=== PATIENT | male | born 1965 | race Caucasian/White ===

== ENCOUNTER 2020-05-19 03:20 | Emergency (ER) | payer SELFPAY ==
[~2020-05-19] VITALS: Ht 182.9 cm; Wt 69.2 kg
[2020-05-19 03:30] VITALS: BP 148/91
[2020-05-19] MEDS ORDERED: ACETAMINOPHEN 500 MG TABLET PO ONE (03:30)
[2020-05-19] MEDS ORDERED: IBUPROFEN 600 MG TABLET. PO ONE (03:30)
--- NOTE | 2020-05-19 03:35 | PHYS DOC ---
Adult General HPI HPI Patient is a 54-year-old male who presents with a chief complaint of right-sided rib pain. States that 4 days ago he was getting into his car, and kind of slipped and landed on his ribs on the console. States that he heard what sounded like a couple of cracks. States he has had some pain in the area, 5 out of 10, dull and achy in nature since then and last night the pain increased to approximately 6-7 out of 10 and was having trouble sleeping. States he has taken some Tylenol at home with minimal to no relief. Denies any other injuries. Denies any other chest pain, shortness of breath, abdominal pain, nausea, vomiting. States he is not on blood thinners. Review of Systems Review of Systems Review of systems otherwise unremarkable except noted in HPI Physical Exam Physical Exam Constitutional: Well developed, well nourished, no acute distress, non-toxic appearance. [] Cardiovascular:Heart rate regular rhythm, no murmur [] Lungs & Thorax: Bilateral breath sounds clear to auscultation. Patient has tenderness to palpation just under and lateral to the right nipple along the rib line. No obvious deformity noted. No contusions or swelling noted. [] Skin: Warm, dry, no erythema, no rash. [] Back: No tenderness, Extremities: No tenderness, no cyanosis, no clubbing, ROM intact, no edema. [] Neurologic: Alert and oriented X 3, normal motor function, normal sensory function, no focal deficits noted. [] Psychologic: Affect normal, judgement normal, mood normal. [] EKG EKG [] Radiology/Procedures Radiology/Procedures []Two PA digital radiographs of the chest were obtained. 2 AP and 2 oblique digital radiographs of the right ribs were obtained. The cardiac silhouette is normal in size. The thoracic aorta is mildly tortuous. Atherosclerotic calcification of the thoracic aorta is seen. Emphysematous changes are seen involving both lungs. No acute pulmonary infiltrate is noted. No pneumothorax or pleural effusion is seen. Degenerative changes are seen involving the thoracic spine. No right-sided rib fracture is seen. IMPRESSION: No right-sided rib fracture is seen. Electronically signed by: Richardson Garcias MD (05/19/2020 3:54 AM) [id number] Heart Score Risk Factors: Risk Factors: DM, Current or recent (<one month) smoker, HTN, HLP, family history of CAD, obesity. Risk Scores: Risk Factors: DM, Current or recent (<one month) smoker, HTN, HLP, family history of CAD, obesity. Course & Med Decision Making Course & Med Decision Making Patient is a 54-year-old male who presents with 4 days of right-sided rib pain after hitting him on thein the car Vital signs not concerning. Physical exam noted above. Started on Tylenol, ibuprofen and Lidoderm patch. Imaging with no acute osseous abnormalities. Patient given dose of pain medicine in the ED to help sleep. Advised on pain management at home. Advised to follow-up with primary care. Gave strict return precautions to ED. Family grateful, verbalized understanding and agreed with plan of discharge. [] Dragon Disclaimer Dragon Disclaimer This electronic medical record was generated, in whole or in part, using a voice recognition dictation system. Departure Departure: Impression: Primary Impression: Rib pain Disposition: 01 DC HOME SELF CARE/HOMELESS Condition: GOOD Referrals: PCP,NO (PCP) Patient Instructions: Rib Contusion Additional Instructions: Please read all the attached information. Please continue to use Tylenol, ibuprofen and ice as needed for pain control. Please refrain from any strenuous activity including lifting, especially lifting your arms above your head. Please be careful when walking as not to fall and reinjure. Please follow-up with your primary care physician as soon as you can to discuss ED visit and set up a follow-up as needed. Please come back to the ED with new or concerning symptoms. ALINA BORDEN MD May 19, 2020 03:35
[2020-05-19] MEDS ORDERED: IBUPROFEN 800 MG TABLET. PO ONE (03:40)
[2020-05-19] MEDS ORDERED: LIDOCAINE (700MG/PATCH) PATCH. TD ONE (03:45)
--- NOTE | 2020-05-19 03:56 | RAD ---
Right rib series to include a PA chest radiograph 05/19/2020 CLINICAL HISTORY: Right rib injury. Two PA digital radiographs of the chest were obtained. 2 AP and 2 oblique digital radiographs of the right ribs were obtained. The cardiac silhouette is normal in size. The thoracic aorta is mildly tort uous. Atherosclerotic calcification of the thoracic aorta is seen. Emphysematous changes are seen inv olving both lungs. No acute pulmonary infiltrate is noted. No pneumothorax or pleural effusion is see n. Degenerative changes are seen involving the thoracic spine. No right-sided rib fracture is seen. IMPRESSION: No right-sided rib fracture is seen. Electronically signed by: Richardson Garcias MD (05/19/2020 3:54 AM) [id number]
[2020-05-19] MEDS ORDERED: oxyCODONE IR 5 MG TABLET PO PRN (04:30)
[2020-05-19] MEDS ORDERED: IBUPROFEN 400 MG TABLET. PO ONE (04:30)
[2020-05-19] MEDS ORDERED: LIDOCAINE (700MG/PATCH) PATCH. TD SCH (09:00)
[2020-05-19] MEDS ORDERED: PATCH REMOVAL. MC SCH (21:00)
== END 2020-05-19 04:40 | disposition home or self-care (01) ==
LOC: ER 03:20
DX: R07.81 Pleurodynia (principal)
CPT/HCPCS: 71101; 99284

== ENCOUNTER 2020-06-14 17:58 | Emergency (ER) | payer SELFPAY ==
[~2020-06-14] VITALS: Ht 182.9 cm; Wt 69.2 kg
[2020-06-14 18:07] VITALS: BP 149/99
--- NOTE | 2020-06-14 18:44 | PHYS DOC ---
Past History Past Medical History: No Pertinent History Past Surgical History: Other Additional Past Surgical Histo: lt knee(scews);lt wrist--bone graft from lt hip to repair wrist;lt ankle Alcohol Use: Occasionally Adult General Chief Complaint Chief Complaint: ABDOMINAL PAIN HPI HPI Patient is a otherwise healthy 54-year-old male who presents with pelvic pain. States he was at work earlier, when he began to have some acute pain just up into the right of his groin, 5 out of 10, dull and achy in nature. Denies any radiation, penile pain, testicular or scrotal pain, or genital swelling. Denies any recent traumas that he is aware of, fevers, illnesses, known ill contacts. Denies any chest pain, shortness of breath, abdominal pain, nausea, vomiting, dysuria, hematuria or penile discharge. Review of Systems Review of Systems Review of systems otherwise unremarkable except noted in HPI Current Medications Current Medications Current Medications Medications (Trade) Dose Ordered Sig/Amaris Start Time Stop Time Status Last Admin Dose Admin Fentanyl Citrate (Fentanyl 2ml Vial) 50 mcg 1X ONCE 06/14/20 18:30 06/14/20 18:31 UNV Allergies Allergies Allergies Coded Allergies Type Severity Reaction Last Updated Verified Penicillins Allergy Unknown 06/14/20 Yes Physical Exam Physical Exam Constitutional: Well developed, well nourished, no acute distress, non-toxic appearance. [] Eyes: conjunctiva normal, no discharge. [] Neck: Normal range of motion, no tenderness, supple, no stridor. [] Cardiovascular:Heart rate regular rhythm, no murmur [] Lungs & Thorax: Bilateral breath sounds clear to auscultation [] Abdomen: Bowel sounds normal, soft, no tenderness, no masses, no pulsatile masses. [] Back: No tenderness, no CVA tenderness. [] Neurologic: Alert and oriented X 3, normal motor function, normal sensory function, no focal deficits noted. [] Current Patient Data Vital Signs Vital Signs Date Time Temp Pulse Resp B/P (MAP) Pulse Ox O2 Delivery O2 Flow Rate FiO2 06/14/20 18:07 98.8 88 18 149/99 (116) 97 Room Air EKG EKG [] Radiology/Procedures Radiology/Procedures [] EXAM: CT of the pelvis was performed with and without IV contrast DATE: 06/14/2020 7:00 PM COMPARISON: No prior INDICATION: Pain RT Superior-lateral to pubic symph. Hernia TECHNIQUE: s CT of the pelvis was performed before and after the administration of IV contrast. Axial, coronal and sagittal reformatted images were generated. PQRS compliance statement - One or more of the following individualized dose reduction techniques were utilized for this study: 1. Automated exposure control 2. Adjustment of the mA and/or kV according to patient size 3. Use of iterative reconstruction technique FINDINGS: No ventral abdominal hernia is identified. Small inguinal lymph nodes are seen. There is no evidence for acute fracture or dislocation. Vascular calcifications are seen within the aorta and iliacs. Degenerative changes of the lower lumbar spine. Deformity of the bladder, likely prostate. Moderate colonic stool content is seen. No pelvic mass or ascites. IMPRESSION: 1. No acute fracture or dislocation. 2. Dense aortobiiliac atherosclerotic calcifications. 3. No inguinal hernia is identified. Electronically signed by: Jules Cortes MD (06/14/2020 7:32 PM) [facility] Heart Score C/O Chest Pain: No Risk Factors: Risk Factors: DM, Current or recent (<one month) smoker, HTN, HLP, family history of CAD, obesity. Risk Scores: Risk Factors: DM, Current or recent (<one month) smoker, HTN, HLP, family history of CAD, obesity. Course & Med Decision Making Course & Med Decision Making Patient is a 54-year-old male who presents with pain in his low abdomen Vital signs not concerning. Physical exam noted above. Patient given dose of fentanyl for pain and placed in Trendelenburg. Manual reduction of the tissue at the point tenderness appears successful. CT of the area of concern with some lymphadenopathy but no active herniation. O n reassessment patient was feeling much better. Discussed all findings with family. Advised a hernia belt. Advised on pain control at home. Advised to call primary care physician first thing in the morning to discuss ED visit and need to schedule an outpatient consultation with a surgeon. Gave return precautions to the ED. Family grateful, verbalized understanding and agreed with plan of discharge. [] Dragon Disclaimer Dragon Disclaimer This electronic medical record was generated, in whole or in part, using a voice recognition dictation system. Departure Departure: Impression: Primary Impression: Abdominal pain Disposition: 01 DC HOME SELF CARE/HOMELESS Condition: GOOD Referrals: PCP,TONNY (PCP) XANDER CHE MD Additional Instructions: Please read all of the attached information. As discussed you can use Tylenol, and ibuprofen as well as ice as needed for pain control at home. Please stop at your nearest pharmacy to brain picker a hernia belt. Please limit excessive activity, especially if it strenuous and includes lifting. Please call your primary care physician first thing in the morning to set up a follow-up visit and discuss ED visit and need for outpatient surgical referral. If you do not have a primary care physician please call the 1 at the number provided. You may also call [facility] surgery at [phone] if you or your primary care or having difficulties finding a surgeon. Please come back to the ED with new or concerning symptoms. ALINA BORDEN MD Jun 14, 2020 18:44
[2020-06-14] MEDS: IOHEXOL 300 MG/ML 75 ML VIAL. IV ONE (19:02)
--- NOTE | 2020-06-14 19:34 | RAD ---
EXAM: CT of the pelvis was performed with and without IV contrast DATE: 06/14/2020 7:00 PM COMPARISON: No prior INDICATION: Pain RT Superior-lateral to pubic symph. Hernia TECHNIQUE: s CT of the pelvis was performed before and after the administration of IV contrast. Axial , coronal and sagittal reformatted images were generated. PQRS compliance statement - One or more of the following individualized dose reduction techniques wer e utilized for this study: 1. Automated exposure control 2. Adjustment of the mA and/or kV according to patient size 3. Use of iterative reconstruction technique FINDINGS: No ventral abdominal hernia is identified. Small inguinal lymph nodes are seen. There is no evidence for acute fracture or dislocation. Vascular calcifications are seen within the aorta and iliacs. Degenerative changes of the lower lumba r spine. Deformity of the bladder, likely prostate. Moderate colonic stool content is seen. No pelvic mass or ascites. IMPRESSION: 1. No acute fracture or dislocation. 2. Dense aortobiiliac atherosclerotic calcifications. 3. No inguinal hernia is identified. Electronically signed by: Jules Cortes MD (06/14/2020 7:32 PM) XIN
== END 2020-06-14 20:18 | disposition home or self-care (01) ==
LOC: ER 17:58
DX: R10.9 Unspecified abdominal pain (principal); Z88.0 Allergy status to penicillin; Z98.890 Other specified postprocedural states
CPT/HCPCS: 72193; 96374; 99285; J3010; Q9967

== ENCOUNTER 2021-05-09 13:25 | Emergency (ER) | payer OTHER ==
[~2021-05-09] VITALS: Ht 182.9 cm; Wt 68.9 kg
[2021-05-09] MEDS ORDERED: IOHEXOL 350 MG/ML 100 ML VIAL. IV ONE (14:15)
[2021-05-09] MEDS ORDERED: ASPIRIN 325 MG TABLET PO ONE (14:15)
[2021-05-09] MEDS ORDERED: NITROGLYCERIN SUBLINGUAL 0.4 MG BOTTLE OF 25. SL PRN (14:15)
[2021-05-09] MEDS ORDERED: CONTRAST GIVEN. MC PRN (14:30)
[2021-05-09 14:36] LABS: BASO # 0.1 x10^3/uL (0.0-0.2); BASO % 1 % (0-3); EOS % 1 % (0-3); HEMATOCRIT 43.7 % (39.0-53.0); HEMOGLOBIN 14.6 g/dL (13.0-17.5); LYMPH # 2.1 x10^3/uL (1.0-4.8); LYMPH % 43 % (24-48); MEAN CORPUSCULAR HEMOGLOBIN 35 pg (25-35); MEAN CORPUSCULAR HGB CONC 34 g/dL (31-37); MEAN CORPUSCULAR VOLUME 105 fL (79-100); MONO # 0.5 x10^3/uL (0.0-1.1); MONO % 11 % (0-9); NEUT # 2.1 x10^3uL (1.8-7.7); NEUT % 44 % (31-73); PLATELET COUNT 167 x10^3/uL (140-400); RED BLOOD COUNT 4.18 x10^6/uL (4.30-5.70); RED CELL DISTRIBUTION WIDTH 14.9 % (11.5-14.5); WHITE BLOOD COUNT 4.8 x10^3/uL (4.0-11.0)
[2021-05-09 14:37] VITALS: BP 122/84
[2021-05-09 14:45] LABS: CALCIUM 8.6 mg/dL (8.5-10.1); CREATININE 0.7 mg/dL (0.7-1.3); GFR 116.7
[2021-05-09 14:58] LABS: ALBUMIN 3.5 g/dL (3.4-5.0); ALBUMIN/GLOBULIN RATIO 0.9 (1.0-1.7); TOTAL BILIRUBIN 0.3 mg/dL (0.2-1.0); TOTAL PROTEIN 7.2 g/dL (6.4-8.2)
--- NOTE | 2021-05-09 14:58 | RAD ---
Single view of the chest. 05/09/2021 2:14 PM Indication: Reason: chest pain / Spl. Instructions: / History: Comparison: Chest radiograph May 19, 2020 Findings: Severe emphysematous changes noted bilaterally. Bullous changes in the lung apices noted. N o pneumothorax, effusion, or definitive acute infiltrate is seen. Heart size is normal. No acute osse ous changes are identified. IMPRESSION: Severe emphysematous changes. No other definitive acute cardiopulmonary process is identi fied. Electronically signed by: Bijan Tirado MD (05/09/2021 2:56 PM) [id number]
[2021-05-09 15:19] LABS: INFLUENZA A PATIENT NEGATIVE (NEGATIVE); INFLUENZA B PATIENT NEGATIVE (NEGATIVE)
--- NOTE | 2021-05-09 15:23 | RAD ---
EXAM: CT angiography of the chest with intravenous contrast; CT angiogram of the head and neck with i ntravenous contrast; CT head without contrast. HISTORY: Amaurosis fugax. TECHNIQUE: Computed tomographic images of the chest, head and neck were obtained prior to and followi ng the administration of intravenous contrast according to angiography protocol. Multiplanar reformat ting was performed and three dimensional maximum intensity projection images were obtained. *One or more of the following individualized dose reduction techniques were utilized for this examina tion: 1. Automated exposure control. 2. Adjustment of the mA and/or kV according to patient size. 3. Use of iterative reconstruction technique. COMPARISON: None. FINDINGS: Head and neck: The noncontrast portion of the exam demonstrates no hemorrhage. There is no mass effec t or midline shift. There is no hydrocephalus. The aguayo-white matter differentiation pattern is intac t. The orbits and mastoid air cells are unremarkable. There is no suspicious calvarial lesion. The angiographic portion of the exam demonstrates a normal caliber aortic arch. There is no evidence of aortic aneurysm or dissection. There is calcified atherosclerotic plaque involving the origins and proximal aspects of the aortic arch great vessels. This results in less than 50 percent stenosis. Th ere is also partially calcified atherosclerotic plaque involving the carotid bulbs and proximal inter nal and external carotid arteries. This results in less than 50 percent stenosis. There is partially calcified atherosclerotic plaque involving the cavernous and supraclinoid internal carotid arteries, with less than 50 percent stenosis. The anterior communicating artery and left posterior commuting indicating artery are patent. There is a suspected developmental or absent or hypoplastic right posterior commuting indicating artery. The anterior, middle and posterior cerebral arteries are widely patent. The basilar artery is widely self nt. There is calcified plaque at the origin of a hypoplastic left vertebral artery, resulting in greater than 70 percent stenosis. There is also atherosclerotic plaque resulting in greater than 70 percent s tenosis at the origin of the right vertebral artery. The distal left vertebral artery is hypoplastic. There is no aneurysm or suspicious enhancing lesion. There are multiple incidental small maxillary sinus mucous tension cysts and there are few periapical lucencies involving mandibular and maxillary teeth. There are degenerative changes involving the cer vical spine. This results in severe right and mild left foraminal stenosis at C3-C4, mild left forami nal stenosis at C4-C5, severe bilateral foraminal and mild central canals of cysts at C5-C6, and mode rate right foraminal stenosis at C6-C7. Chest: There is no evidence of pulmonary embolism. The heart is normal in size. There is coronary art chun calcification. There are prominent right hilar lymph nodes, likely reactive in etiology. There is proximal esophageal wall thickening. There is severe emphysema with biapical bullae. There is no pne umothorax or pleural effusion. There is a lobulated nodule within the medial right lower lobe measuri ng 1.6 cm. There is a 3 mm nodule within the lateral right major pleural fissure, likely due to a fis sural lymph node. There is a 3 mm nodule within the right middle lobe (series 4, image 244). There is bronchial wall thickening. There is hepatic steatosis. There is a 5 mm focus of enhancement within the right hepatic lobe likely due to shunt phenomenon. There is a 3.1 cm left adrenal nodule, the attenuation which is consistent with an adenoma. There is partial visualization of a 9 mm hypodense lesion within the anterior right kidney. There is an incidental accessory left renal artery. There are degenerative changes involving the thoracic and upper lumbar spine. There is chronic mild decreased vertebral body height at T8. IMPRESSION: 1. No evidence of pulmonary embolism. 2. Moderate atherosclerotic plaque involving the origins and proximal aspects of the aortic arch grea t vessels, carotid bifurcations and distal internal carotid arteries, resulting in less than 50 perce nt stenosis. There is also atherosclerotic plaque resulting in greater than 70 percent stenosis at th e origins of the vertebral arteries. No arterial occlusion is seen. 3. 1.6 cm suspicious medial right lower lobe pulmonary nodule. This is within limits for assessment w ith PET/CT. There are additional indeterminant 3 mm nodules within the right middle lobe. 4. Severe bullous emphysema and bronchial wall thickening due to bronchitis. 5. Nonspecific mildly enlarged right hilar lymph nodes. 6. 3.1 cm left adrenal adenoma. 7. Suspected small right renal cyst, partially included on the [id number]. Renal sonography can be performed to confirm benignity. 8. Hepatic steatosis. PQRS Compliance Statement - Stenosis calculations for CT, MR and conventional angiography are based u lucas measurement of the distal ICA diameter in accordance with the NASCET methodology. Stenosis calcu lations for carotid ultrasound studies are derived from validated velocity criteria which are known t o correlate with the NASCET methodology. Electronically signed by: Hayley Carrizales MD (05/09/2021 3:21 PM) [id number]
[2021-05-09] MEDS ORDERED: ENOXAPARIN ** NOTE DOSE ** SYRINGE SQ ONE (16:00)
--- NOTE | 2021-05-09 16:15 | PHYS DOC ---
Past History Past Medical History: No Pertinent History Past Surgical History: Other Additional Past Surgical Histo: lt knee(scews);lt wrist--bone graft from lt hip to repair wrist;lt ankle Alcohol Use: Heavy Adult General Chief Complaint Chief Complaint: CHEST PAIN HPI HPI The patient is a 55-year-old male with a history of longstanding active tobacco abuse as well as daily alcohol abuse for many years (drinks about a pint a day). Patient denies other known medical history but admits that he has not been seen by a physician for a number of years. Mr. Chen presents for evaluation of dull substernal chest pressure which he describes as "someone sitting on my chest." This discomfort has been present intermittently for about 2 weeks. It is exertional and is reliably brought on and/or worsened with climbing stairs or moving about vigorously. Associated nausea, shortness of breath and cold sweats. Severity 6 out of 10 at present. Patient has a secondary concern of recurrent episodes of transient complete loss of vision over the past 2 weeks. Patient states that without any warning he will completely lose his vision for a minute or two. The last time this happened was last evening while he was sitting down at home watching television. All of a sudden, his vision went black and he could not see anything at all out of either eye for a minute. He remained awake and alert and otherwise describes no other specific symptoms during the episode. Similar episodes have occurred about 6 times. Patient denies associated fevers, nausea or vomiting, headache, focal or lateralizing weakness, numbness or tingling, neck stiffness/pain/meningismus, vision changes, upper respiratory congestion/rhinorrhea, cough, sore throat, abdominal pain, flank pain, back pain, dysuria, hematuria, polyuria or oliguria, changes in bowel habits, pain or swelling to arms or legs. Vital signs are appropriate here and the patient is in no acute distress. Review of Systems Review of Systems Constitutional: Denies fever or chills [] Eyes: Denies change in visual acuity, redness, or eye pain [] HENT: Denies nasal congestion or sore throat [] Respiratory: Denies cough or shortness of breath [] Cardiovascular: No additional information not addressed in HPI [] GI: Denies abdominal pain, nausea, vomiting, bloody stools or diarrhea [] : Denies dysuria or hematuria [] Musculoskeletal: Denies back pain or joint pain [] Integument: Denies rash or skin lesions [] Neurologic: Denies headache, focal weakness or sensory changes [] Endocrine: Denies polyuria or polydipsia [] All other systems were reviewed and found to be within normal limits, except as documented in this note. Current Medications Current Medications Current Medications Medications (Trade) Dose Ordered Sig/Amaris Start Time Stop Time Status Last Admin Dose Admin Aspirin (Heriberto Aspirin) 325 mg 1X ONCE 05/09/21 14:15 05/09/21 14:16 DC 05/09/21 14:35 325 MG Enoxaparin Sodium (Lovenox 80mg Syringe) 70 mg 1X ONCE 05/09/21 16:00 05/09/21 16:01 DC Info (Do NOT chart on this entry -- for MONITORING) 1 each PRN DAILY PRN 05/09/21 14:30 05/11/21 14:29 Iohexol (Omnipaque 350 Mg/ml) 100 ml 1X ONCE 05/09/21 14:15 05/09/21 14:17 DC 05/09/21 14:19 100 ML Lorazepam (Ativan Inj) 1 mg 1X ONCE 05/09/21 14:15 05/09/21 14:16 DC 05/09/21 14:36 1 MG Nitroglycerin (Nitrostat) 0.4 mg PRN Q5MIN PRN 05/09/21 14:15 Allergies Allergies Allergies Coded Allergies Type Severity Reaction Last Updated Verified Penicillins Allergy Unknown 06/14/20 Yes Physical Exam Physical Exam 55-year-old gentleman appearing older than his stated age and somewhat chronically ill but nontoxic and in no acute distress. Head is normocephalic and atraumatic. Neck is supple and nontender. No neck stiffness/rigidity/meningismus seen and patient ranges his neck fully in all dimensions without discomfort or distress. No JVD. Oropharynx is moist. Lungs are clear to auscultation at all stations. There is a normal S1 and S2 without rubs or gallops and capillary refill is appropriate, less than 2 seconds globally. Abdomen is soft, nontender and nondistended without pulsatile mass. Skin is warm and dry without cyanosis, clubbing or edema. Psychiatrically, the patient demonstrates appropriate mood and affect and is alert. Evaluation of the extremities reveals BUEs and BLEs neurovascularly intact distally with strength out of 5, sensation intact light touch in all nerve distributions, radial, DP and PT pulses 2+ equal bilaterally, capillary refill less than 2 seconds, hands and feet warm and well-perfused. No dependent peripheral edema distally. No calf tenderness swelling bilaterally. Homans test is negative bilaterally. Neurologically, cranial nerves II through XII are intact and there are no lateralizing deficits seen. Speech is normal. Language is normal. Coordination is normal. There is no dysmetria with [id number]-rq-[id number] or pomb-ps-lcun bilaterally. Strength is 5 out of 5 at all joints of bilateral upper and lower extremities. Sensation is intact to light touch in bilateral upper and lower extremities. Patient ambulates with a narrow, steady, non- ataxic gait here in the emergency department and is alert and oriented x4. Current Patient Data Vital Signs Vital Signs Date Time Temp Pulse Resp B/P (MAP) Pulse Ox O2 Delivery O2 Flow Rate FiO2 05/09/21 14:37 79 122/84 05/09/21 13:39 98.0 18 97 Lab Results Laboratory Tests Test 05/09/21 14:05 05/09/21 14:40 White Blood Count 4.8 x10^3/uL (4.0-11.0) Red Blood Count 4.18 x10^6/uL (4.30-5.70) L Hemoglobin 14.6 g/dL (13.0-17.5) Hematocrit 43.7 % (39.0-53.0) Mean Corpuscular Volume 105 fL (79-100) H Mean Corpuscular Hemoglobin 35 pg (25-35) Mean Corpuscular Hemoglobin Concent 34 g/dL (31-37) Red Cell Distribution Width 14.9 % (11.5-14.5) H Platelet Count 167 x10^3/uL (140-400) Neutrophils (%) (Auto) 44 % (31-73) Lymphocytes (%) (Auto) 43 % (24-48) Monocytes (%) (Auto) 11 % (0-9) H Eosinophils (%) (Auto) 1 % (0-3) Basophils (%) (Auto) 1 % (0-3) Neutrophils # (Auto) 2.1 x10^3uL (1.8-7.7) Lymphocytes # (Auto) 2.1 x10^3/uL (1.0-4.8) Monocytes # (Auto) 0.5 x10^3/uL (0.0-1.1) Eosinophils # (Auto) 0.0 x10^3/uL (0.0-0.7) Basophils # (Auto) 0.1 x10^3/uL (0.0-0.2) Prothrombin Time 9.8 SEC (9.4-11.4) Prothrombin Time INR 0.9 (0.9-1.1) Activated Partial Thromboplast Time 24 SEC (23-33) Sodium Level 145 mmol/L (136-145) Potassium Level 4.0 mmol/L (3.5-5.1) Chloride Level 104 mmol/L (98-107) Carbon Dioxide Level 30 mmol/L (21-32) Anion Gap 11 (6-14) Blood Urea Nitrogen 11 mg/dL (8-26) Creatinine 0.7 mg/dL (0.7-1.3) Estimated GFR (Cockcroft-Gault) 116.7 BUN/Creatinine Ratio 16 (6-20) Glucose Level 86 mg/dL (70-99) Calcium Level 8.6 mg/dL (8.5-10.1) Total Bilirubin 0.3 mg/dL (0.2-1.0) Aspartate Amino Transferase (AST) 142 U/L (15-37) H Alanine Aminotransferase (ALT) 105 U/L (16-63) H Alkaline Phosphatase 70 U/L (46-116) Troponin I High Sensitivity 47 ng/L (4-75) PD-Wrb-U-Type Natriuretic Peptide 323 pg/mL (0-124) H Total Protein 7.2 g/dL (6.4-8.2) Albumin 3.5 g/dL (3.4-5.0) Albumin/Globulin Ratio 0.9 (1.0-1.7) L Ethyl Alcohol Level 317 mg/dL (0-10) H Influenza Type A (Rapid) Negative (NEGATIVE) Influenza Type B (Rapid) Negative (NEGATIVE) SARS-CoV-2 Antigen (Rapid) Negative (NEGATIVE) EKG EKG Sinus rhythm, rate 76, no acute ST elevation or depression, left bundle branch block, OH 170, QRS 162, QTc 503, EP interpretation. Radiology/Procedures Radiology/Procedures EXAM: CT angiography of the chest with intravenous contrast; CT angiogram of the head and neck with intravenous contrast; CT head without contrast. HISTORY: Amaurosis fugax. TECHNIQUE: Computed tomographic images of the chest, head and neck were obtained prior to and following the administration of intravenous contrast according to angiography protocol. Multiplanar reformatting was performed and three dimensional maximum intensity projection images were obtained. *One or more of the following individualized dose reduction techniques were utilized for this examination: 1. Automated exposure control. 2. Adjustment of the mA and/or kV according to patient size. 3. Use of iterative reconstruction technique. COMPARISON: None. FINDINGS: Head and neck: The noncontrast portion of the exam demonstrates no hemorrhage. There is no mass effect or midline shift. There is no hydrocephalus. The aguayo- white matter differentiation pattern is intact. The orbits and mastoid air cells are unremarkable. There is no suspicious calvarial lesion. The angiographic portion of the exam demonstrates a normal caliber aortic arch. There is no evidence of aortic aneurysm or dissection. There is calcified atherosclerotic plaque involving the origins and proximal aspects of the aortic arch great vessels. This results in less than 50 percent stenosis. There is also partially calcified atherosclerotic plaque involving the carotid bulbs and proximal internal and external carotid arteries. This results in less than 50 percent stenosis. There is partially calcified atherosclerotic plaque involving the cavernous and supraclinoid internal carotid arteries, with less than 50 percent stenosis. The anterior communicating artery and left posterior commuting indicating artery are patent. There is a suspected developmental or absent or hypoplastic right posterior commuting indicating artery. The anterior, middle and posterior cerebral arteries are widely patent. The basilar artery is widely patent. There is calcified plaque at the origin of a hypoplastic left vertebral artery, resulting in greater than 70 percent stenosis. There is also atherosclerotic plaque resulting in greater than 70 percent stenosis at the origin of the right vertebral artery. The distal left vertebral artery is hypoplastic. There is no aneurysm or suspicious enhancing lesion. There are multiple incidental small maxillary sinus mucous tension cysts and there are few periapical lucencies involving mandibular and maxillary teeth. There are degenerative changes involving the cervical spine. This results in severe right and mild left foraminal stenosis at C3-C4, mild left foraminal st enosis at C4-C5, severe bilateral foraminal and mild central canals of cysts at C5-C6, and moderate right foraminal stenosis at C6-C7. Chest: There is no evidence of pulmonary embolism. The heart is normal in size. There is coronary artery calcification. There are prominent right hilar lymph nodes, likely reactive in etiology. There is proximal esophageal wall thickening. There is severe emphysema with biapical bullae. There is no pneumothorax or pleural effusion. There is a lobulated nodule within the medial right lower lobe measuring 1.6 cm. There is a 3 mm nodule within the lateral right major pleural fissure, likely due to a fissural lymph node. There is a 3 mm nodule within the right middle lobe (series 4, image 244). There is bronchial wall thickening. There is hepatic steatosis. There is a 5 mm focus of enhancement within the right hepatic lobe likely due to shunt phenomenon. There is a 3.1 cm left adrenal nodule, the attenuation which is consistent with an adenoma. There is partial visualization of a 9 mm hypodense lesion within the anterior right kidney. There is an incidental accessory left renal artery. There are degenera tive changes involving the thoracic and upper lumbar spine. There is chronic mild decreased vertebral body height at T8. IMPRESSION: 1. No evidence of pulmonary embolism. 2. Moderate atherosclerotic plaque involving the origins and proximal aspects of the aortic arch great vessels, carotid bifurcations and distal internal carotid arteries, resulting in less than 50 percent stenosis. There is also atherosclerotic plaque resulting in greater than 70 percent stenosis at the origins of the vertebral arteries. No arterial occlusion is seen. 3. 1.6 cm suspicious medial right lower lobe pulmonary nodule. This is within limits for assessment with PET/CT. There are additional indeterminant 3 mm nodules within the right middle lobe. 4. Severe bullous emphysema and bronchial wall thickening due to bronchitis. 5. Nonspecific mildly enlarged right hilar lymph nodes. 6. 3.1 cm left adrenal adenoma. 7. Suspected small right renal cyst, partially included on the [id number]. Renal sonography can be performed to confirm benignity. 8. Hepatic steatosis. PQRS Compliance Statement - Stenosis calculations for CT, MR and conventional angiography are based upon measurement of the distal ICA diameter in accordance with the NASCET methodology. Stenosis calculations for carotid ultrasound studies are derived from validated velocity criteria which are known to correlate with the NASCET methodology. Electronically signed by: Hayley Celestin MD (05/09/2021 3:21 PM) [id number] DICTATED AND SIGNED BY: HAYLEY CELESTIN MD DATE: 05/09/21 1507 CC: HAI FROST MD; PCP,NO ~MTH0 0[] Heart Score C/O Chest Pain: Yes HEART Score for Chest Pain: HEART Score for Chest Pain Response (Comments) Value History Highly Suspicious 2 ECG Nonspecific Repolarizatio 1 Age >45 - < 65 1 Risk Factors 1 or 2 Risk Factors 1 Total 5 Risk Factors: Risk Factors: DM, Current or recent (<one month) smoker, HTN, HLP, family history of CAD, obesity. Risk Scores: Risk Factors: DM, Current or recent (<one month) smoker, HTN, HLP, family history of CAD, obesity. Course & Med Decision Making Course & Med Decision Making 55-year-old alcoholic gentleman here for evaluation of suspicious exertional chest discomfort over the past couple of weeks. Chest pain free after sublingual nitroglycerin here in the emergency department. Also with recurrent episodes of amaurosis fugax over the past couple of weeks. Unclear etiology for these. Large work-up including noncontrast CT head, CT angiography of the head, neck and chest, labs and EKG remarkable primarily for severe bullous emphysema, a suspicious right sided pulmonary nodule for which PET/CT evaluation is recommended, a left bundle branch block of unclear chronicity (no priors for comparison), vertebral and carotid plaquing without critical stenosis or other acute abnormality in the head or neck, and, aside from evidence of alcohol intoxication, largely unremarkable lab work. Initial troponin negative. Given highly suspicious chest discomfort, patient has been covered for unstable angina with a dose of Lovenox and will be transferred to a higher level of cardiac care at [facility]. Additionally, feel he will benefit from neurology consultation for amaurosis fugax episodes, which is not available at this facility. Graciously accepted in transfer to [facility] by Dr. Vega. Elliot Disclaimer Elliot Disclaimer This electronic medical record was generated, in whole or in part, using a voice recognition dictation system. Departure Departure: Impression: Primary Impression: Unstable angina Additional Impressions: Amaurosis fugax, both eyes Alcohol abuse Disposition: 02 SHORT TERM HOSPITAL Condition: GUARDED Referrals: PCP,NO (PCP) Problem Qualifiers HAI FROST MD May 09, 2021 16:15
--- NOTE | 2021-05-09 20:46 | EKG ---
[address] [address] Test Date: 2021-05-09 Test Time: 13:41:58 Pat Name: JAMES MOLINA Department: Room: Gender: M Supervisory Historian: ANNA : 1965 Requested By: HAI FROST Order Number: [id number] Reading MD: Rigo Heaton MD Measurements Intervals [place] Rate: 76 P: 51 MT: 170 QRS: -47 QRSD: 162 T: 132 QT: 448 QTc: 503 Interpretive Statements SINUS RHYTHM LBBB Electronically Signed On 05-13-2021 8:36:10 [employer] by Rigo Heaton MD
== END 2021-05-09 18:41 | disposition short-term general hospital (02) ==
LOC: ER 13:25
DX: I20.0 Unstable angina (principal); G45.3 Amaurosis fugax; F10.20 Alcohol dependence, uncomplicated; Z20.822 Contact with and (suspected) exposure to COVID-19; Z88.0 Allergy status to penicillin; Y90.8 Blood alcohol level of 240 mg/100 ml or more
CPT/HCPCS: 36415; 70450; 70496; 70498; 71045; 71275; 80053; 83880; 84484; 85025; 85610; 85730; 87428; 93005; 96372; 96374; 99285; C9803; G0480; J1650; J2060; Q9967; U0003

== ENCOUNTER 2021-08-05 08:58 | Emergency (ER) | payer OTHER ==
[~2021-08-05] VITALS: Ht 177.8 cm; Wt 68.7 kg
[2021-08-05] MEDS ORDERED: METOCLOPRAMIDE HCL 10 MG/2 ML VIAL. IM ONE (10:00)
[2021-08-05] MEDS ORDERED: KETOROLAC 60 MG/2 ML VIAL. IM ONE (10:00)
--- NOTE | 2021-08-05 10:06 | PHYS DOC ---
Past History Past Medical History: No Pertinent History Past Surgical History: Other Additional Past Surgical Histo: lt knee(scews);lt wrist--bone graft from lt hip to repair wrist;lt ankle Alcohol Use: Heavy General Adult EDM: Chief Complaint: HEADACHE HPI: HPI: Patient is a 55-year-old male coming in for 1 month of headache that is frontal and top of his head. Patient also complains of chronic vision problems and congestion. Patient states he is "treating" his headache with alcohol and marijuana. Denies any fevers, neck pain, vomiting or diarrhea. Patient took Tylenol yesterday. Review of Systems: Review of Systems: All other systems within normal limits except for as noted in the HPI Allergies: Allergies: Allergies Coded Allergies Type Severity Reaction Last Updated Verified Penicillins Allergy Unknown 08/05/21 Yes Physical Exam: PE: Constitutional: Well developed, well nourished, no acute distress, non-toxic appearance. [] HENT: Normocephalic, atraumatic, bilateral external ears normal, nose normal. No temporal tenderness, tenderness over maxillary sinuses [] Eyes: PERRLA, conjunctiva normal, no discharge. [] Neck: No rigidity, supple, no stridor. [] Cardiovascular: Regular rate and rhythm, brisk cap refill [] Lungs & Thorax: Non labored symmetric respirations, no tachypnea or respiratory distress [] Abdomen: Soft, nondistended. Skin: Warm, dry, no erythema, no rash. [] Back: Unremarkable Extremities: No deformities, range of motion grossly intact, no lower extremity edema [] Neurologic: Alert and oriented X 3, no focal deficits noted. [] Psychologic: Affect normal, judgement normal, mood normal. [] EKG: EKG: [] Radiology/Procedures: Radiology/Procedures: [address] [address] IMAGING REPORT Signed PATIENT: JAMES MOLINA ACCOUNT: [id number] : 1965 LOCATION: ER AGE: 55 SEX: M EXAM STATUS: REG ER ORD. PHYSICIAN: MICHELLE ANDRADE MD REASON: headache X 1 month PROCEDURE: CT HEAD WO CONTRAST EXAMINATION: CT HEAD/BRAIN WO. TECHNIQUE: Noncontrast axial images of the brain were obtained with coronal and sagittal reconstructions. One or more of the following radiation dose reduction techniques was used: automated exposure control, adjustment of mA and/or KV according to patient size, and/or utilization of iterative reconstruction technique. HISTORY: 55 years Male Reason: headache X 1 month. FINDINGS: There is no intracranial hemorrhage, edema or mass effect. The brain parenchyma appears unremarkable. Size of the ventricles is appropriate. There is complete opacification of the catheter right maxillary sinus and adjacent the right posterior ethmoidal air cells. The frontal sinuses are clear. The maxillary sinuses are not within the csdzo-dl-evcz of this exam. The mastoid air cells and middle ear cavities appear unremarkable.. IMPRESSION: 1. No intracranial abnormality. 2. Complete opacification of the right sphenoidal sinus could relate to sinusitis or soft tissue lesion. ENT evaluation is recommended, and consider follow-up dedicated CT sinuses. Electronically signed by: Kwasi Thorpe MD (08/05/2021 10:27 AM) [id number] DICTATED AND SIGNED BY: KWASI THORPE MD DATE: 08/05/21 1023 CC: MICHELLE ANDRADE MD; PCP,NO ~ [] Heart Score: C/O Chest Pain: No Risk Factors: Risk Factors: DM, Current or recent (<one month) smoker, HTN, HLP, family history of CAD, obesity. Risk Scores: Score 0 - 3: 2.5% MACE over next 6 weeks - Discharge Home Score 4 - 6: 20.3% MACE over next 6 weeks - Admit for Clinical Observation Score 7 - 10: 72.7% MACE over next 6 weeks - Early Invasive Strategies Course & Med Decision Making: Course & Med Decision Making Pertinent Labs and Imaging studies reviewed. (See chart for details) [] Dragon Disclaimer: Dragon Disclaimer: This electronic medical record was generated, in whole or in part, using a voice recognition dictation system. Departure Departure: Impression: Primary Impression: Sinusitis Disposition: 07 LEFT AWOL/ELOPED Condition: STABLE Referrals: PCP,NO (PCP) BALTAZAR DELCID DO Patient Instructions: Sinusitis Additional Instructions: Take full course of antibiotics. Follow-up up with ENT. Scripts Naproxen Sodium/Pseudoephedrin (Sudafed Sinus 12Hr Pressr-Pain) 1 Each Tab.er.12 h 1 EACH PO PRN Q12HR PRN for CONGESTION for 10 Days, #20 TAB.SR Prov: MICHELLE ANDRADE MD 08/05/21 Cefdinir (CEFDINIR) 300 Mg Capsule 1 CAP PO BID for antibiotic for 10 Days, #20 CAP Prov: MICHELLE ANDRADE MD 08/05/21 MICHELLE ANDRADE MD August 05, 2021 10:05
--- NOTE | 2021-08-05 10:29 | RAD ---
EXAMINATION: CT HEAD/BRAIN WO. TECHNIQUE: Noncontrast axial images of the brain were obtained with coronal and sagittal reconstructi ons. One or more of the following radiation dose reduction techniques was used: automated exposure control , adjustment of mA and/or KV according to patient size, and/or utilization of iterative reconstructio n technique. HISTORY: 55 years Male Reason: headache X 1 month. FINDINGS: There is no intracranial hemorrhage, edema or mass effect. The brain parenchyma appears un remarkable. Size of the ventricles is appropriate. There is complete opacification of the catheter right maxillary sinus and adjacent the right posterio r ethmoidal air cells. The frontal sinuses are clear. The maxillary sinuses are not within the field- of-view of this exam. The mastoid air cells and middle ear cavities appear unremarkable.. IMPRESSION: 1. No intracranial abnormality. 2. Complete opacification of the right sphenoidal sinus could relate to sinusitis or soft tissue lesi on. ENT evaluation is recommended, and consider follow-up dedicated CT sinuses. Electronically signed by: Colt Thorpe MD (08/05/2021 10:27 AM) [id number]
[2021-08-05 10:35] LABS: BASO % 1 % (0-3); EOS % 1 % (0-3); HEMATOCRIT 42.2 % (39.0-53.0); HEMOGLOBIN 14.1 g/dL (13.0-17.5); LYMPH # 1.5 x10^3/uL (1.0-4.8); LYMPH % 32 % (24-48); MEAN CORPUSCULAR HEMOGLOBIN 35 pg (25-35); MEAN CORPUSCULAR HGB CONC 34 g/dL (31-37); MEAN CORPUSCULAR VOLUME 103 fL (79-100); MONO # 0.4 x10^3/uL (0.0-1.1); MONO % 9 % (0-9); NEUT # 2.7 x10^3uL (1.8-7.7); NEUT % 57 % (31-73); PLATELET COUNT 180 x10^3/uL (140-400); RED BLOOD COUNT 4.09 x10^6/uL (4.30-5.70); RED CELL DISTRIBUTION WIDTH 14.8 % (11.5-14.5); WHITE BLOOD COUNT 4.7 x10^3/uL (4.0-11.0)
[2021-08-05 10:45] LABS: CALCIUM 8.5 mg/dL (8.5-10.1); CREATININE 0.6 mg/dL (0.7-1.3); GFR 139.4; POTASSIUM 3.7 mmol/L (3.5-5.1)
[2021-08-05 10:51] LABS: ALBUMIN 3.1 g/dL (3.4-5.0); ALBUMIN/GLOBULIN RATIO 0.8 (1.0-1.7); MAGNESIUM 1.7 mg/dL (1.8-2.4); PHOSPHORUS 3.5 mg/dL (2.6-4.7); TOTAL BILIRUBIN 0.4 mg/dL (0.2-1.0); TOTAL PROTEIN 7.2 g/dL (6.4-8.2)
[2021-08-05 11:13] LABS: BARBITURATES NEG (NEG); BENZODIAZEPINES NEG (NEG); CANNABINOIDS POS (NEG); COCAINE NEG (NEG); METHADONE NEG (NEG); OPIATES NEG (NEG); PHENCYCLIDINE NEG (NEG)
[2021-08-05 11:16] LABS: AMPHETAMINE/METHAMPHETAMINE NEG (NEG)
[2021-08-05] MEDS ORDERED: CEFD300C PO (11:29)
[2021-08-05] MEDS ORDERED: NAPR1TAB PO (11:29)
[2021-08-05 11:37] LABS: BACTERIA,URINE 0 /HPF (0-FEW); CLARITY,URINE CLEAR; COLOR,URINE YELLOW; GLUCOSE,URINE NEG (NEG); NITRITE,URINE NEG (NEG); SQUAMOUS EPITHELIAL CELL,UR FEW /LPF; UROBILINOGEN,URINE 0.2 mg/dL (0.2 mg/dL)
[2021-08-05 11:40] VITALS: BP 144/101
== END 2021-08-05 11:42 | disposition left against medical advice (07) ==
LOC: ER 08:58
DX: J32.9 Chronic sinusitis, unspecified (principal); Z88.0 Allergy status to penicillin
CPT/HCPCS: 36415; 70450; 80053; 80307; 81001; 83735; 84100; 85025; 96372; 99284; G0480; J1885; J2765